=== PATIENT | male | born 1990 | race Caucasian/White ===

== ENCOUNTER 2019-01-14 03:05 | Emergency (ER) | payer OTHER ==
[2019-01-14 03:37] VITALS: BP 131/78; PULSE 85; TEMP 97.8; BMI 25.8
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
--- NOTE | 2019-01-14 03:46 | PDOC ---
*Physical Exam - Vital Signs Last Vital Signs Temp Pulse Resp BP Pulse Ox 97.8 F 85 18 131/78 99 01/14/19 03:05 01/14/19 03:05 01/14/19 03:05 01/14/19 03:05 01/14/19 03:05 Medical Decision Making - Medical Decision Making 01/14/19 03:44 Patient seen by the advanced practice provider under my direct supervision. Ancillary testing reviewed as necessary. I agree with plan as outlined by the advanced practice provider. *DC/Admit/Observation/Transfer Diagnosis at time of Disposition: Scratch of forearm Qualifiers: Encounter type: initial encounter Laterality: left Qualified Code(s): S50.812A - Abrasion of left forearm, initial encounter - Discharge Dispostion Condition at time of disposition: Fair - Referrals - Patient Instructions Additional Instructions: As there is no breaking of skin, there is an extremely low risk of transmission of infectious disease. Return to primary doctor or the emergency department for any new or worsening symptoms. Thank you very much for treasonous provider emergent health care needs. - Post Discharge Activity Forms/Work/School Notes: Back to Work
== END 2019-01-14 03:48 | disposition home or self-care (01) ==
LOC: JER 03:05
DX: S50.812A Abrasion of left forearm, initial encounter (principal); Y35.891A Legal intervention involving other specified means, law enforcement official injured, initial encounter; Y93.89 Activity, other specified; Y92.238 Other place in hospital as the place of occurrence of the external cause; Y99.0 Civilian activity done for income or pay
CPT/HCPCS: 99281-25

== ENCOUNTER 2019-05-26 04:10 | Emergency (ER) | payer OTHER ==
[2019-05-26 04:20] VITALS: BP 134/76; PULSE 83; TEMP 98.3; BMI 26.6
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
--- NOTE | 2019-05-26 05:34 | PDOC ---
Attending Attestation - Resident Resident Name: Cornelia Cox - ED Attending Attestation I have performed the following: I have examined & evaluated the patient, The case was reviewed & discussed with the resident, I agree w/resident's findings & plan - HPI HPI: 05/26/19 19:33 see resident hpi - Physicial Exam PE: 05/26/19 19:33 agree with resident exam - Medical Decision Making 05/26/19 19:33 29 yo YPO with right arm strain no clinical evidence of fracture will d/c with OP follow up
== END 2019-05-26 05:57 | disposition home or self-care (01) ==
LOC: JER 04:10
DX: S46.911A Strain of unspecified muscle, fascia and tendon at shoulder and upper arm level, right arm, initial encounter (principal); Y35.891A Legal intervention involving other specified means, law enforcement official injured, initial encounter; Y93.89 Activity, other specified; Y92.9 Unspecified place or not applicable; Y99.0 Civilian activity done for income or pay
CPT/HCPCS: 99281-25